=== PATIENT | female | born 1950 | race Caucasian/White ===

== ENCOUNTER → 2020-09-09 | Day surgery (SDC) | payer OTHER ==
[~2020-09-09] VITALS: Ht 154.9 cm; Wt 70.5 kg
[~2020-09-09] MED LIST: ALENDRONATE SOD70 MG PO; AMLODIPINE BESYL5 MG PO; ASPIRIN EC325 MG PO; AZATHIOPRINE50 MG PO; AZITHROMYCIN 2250 MG PO; CALCIUM + VITA1 EACH PO; CENTRUM SILVER1 EAC4 PO; DULOXETINE HCL60 MG PO; ESCITALOPRAM OX10 MG PO; FLONASE ALLER15.8 ML; GABAPENTIN300 MG PO; LASIX20 MG PO; METOLAZONE 5MG T5 M1 PO; PANTOPRAZOLE SO40 MG PO; PREDNISONE 5MG T5 MG PO; PROPRANOLOL HCL10 MG PO; SULFAMETHOXAZO1 EAC1 PO; TACROLIMUS1 MG PO; ZOVIRAX200 MG PO
[2020-09-09 09:25] LABS: BUN/CREAT RATIO (CALC) 21.2 RATIO; CREATININE 1.51 mg/dL (0.51-0.95); POTASSIUM 3.4 mmol/L (3.5-5.1)
== END | disposition home or self-care (01) ==
LOC: FAS 08:01
PROVIDERS: Anesthesiology
DX: Z12.11 Encounter for screening for malignant neoplasm of colon (principal); D12.2 Benign neoplasm of ascending colon; D12.5 Benign neoplasm of sigmoid colon; K57.30 Diverticulosis of large intestine without perforation or abscess without bleeding; K64.4 Residual hemorrhoidal skin tags; K64.8 Other hemorrhoids; M19.90 Unspecified osteoarthritis, unspecified site; J44.9 Chronic obstructive pulmonary disease, unspecified; I10 Essential (primary) hypertension; M81.0 Age-related osteoporosis without current pathological fracture; F17.210 Nicotine dependence, cigarettes, uncomplicated; K21.9 Gastro-esophageal reflux disease without esophagitis; Z86.010 Personal history of colon polyps; Z80.0 Family history of malignant neoplasm of digestive organs; Z79.52 Long term (current) use of systemic steroids; Z79.82 Long term (current) use of aspirin; Z79.83 Long term (current) use of bisphosphonates; Z79.899 Other long term (current) drug therapy; Z94.2 Lung transplant status
CPT/HCPCS: 36415; 80048; 88305; J2250; J2704; J7120